=== PATIENT | male | born 1990 | race American Indian/Alaskan Native ===

== ENCOUNTER 2021-03-12 13:31 | Outpatient (REF) | payer OTHER, SELFPAY ==
[2021-03-12 16:30] LABS: Alanine Aminotransferase 38 U/L (0-40); Albumin Level 4.9 g/dL (3.5-5.0); Alkaline Phosphatase 61 U/L (39-117); Anion Gap 15 (12-20); Aspartate Amino Transferase 33 U/L (5-37); Bilirubin Total 0.9 mg/dL (0.0-1.0); Blood Urea Nitrogen 15 mg/dL (9-16); Calcium 9.7 mg/dL (8.4-10.2); Carbon Dioxide 26 mmol/L (22-29); Chloride 100 mmol/L (96-108); Cholesterol 224 mg/dL; Estimated Glomerular Filt Rate > 60; Glucose Fasting 93 mg/dL (60-99); HDL Cholesterol 59 mg/dL; Potassium 4.2 mmol/L (3.3-5.1); Sodium 137 mmol/L (135-145); Total Protein 8.6 g/dL (6.5-8.0); Triglycerides 765 mg/dL
[2021-03-12 16:51] LABS: TSH reflex Free T4 2.76 uIU/mL (0.32-4.0)
== END 2021-03-12 13:32 | disposition home or self-care (01) ==
LOC: HO.HMGCLDS 13:31
PROVIDERS: PCP Nurse Practitioner Family; Visit Provider Nurse Practitioner Family
DX: Z00.00 Encounter for general adult medical examination without abnormal findings (principal)
CPT/HCPCS: 36415; 80053; 80061; 84443

== ENCOUNTER → 2021-06-27 12:45 | Outpatient (BNVA) | payer OTHER, SELFPAY | PROVIDERS: Visit Provider Urology ==

== ENCOUNTER 2021-08-11 11:07 | Day surgery (SDC) | payer OTHER, SELFPAY ==
[2021-08-05 11:19] VITALS: BMI 28.4
--- NOTE | 2021-08-08 15:36 | P.CONAN_ITS ---
Documented by User: Bella Mittal NP 08/08/21 15:36 HPI - Anesthesia Eval Consult details Narrative: 30yo M for Circumcision PMFSH Active Problems Active Problems: All Active Problems (Updated 08/05/21 @ 11:21 by Delores Sainz RN) Uncircumcised male (Acute) Physical exam (Acute) High triglycerides (Acute) Phimosis (Acute) Past Medical History Medical History COVID-19 vaccine series completed No pertinent past medical history Family History Family History Father No problems noted. Mother Cancer Surgical History Surgical History H/O left knee surgery History of appendectomy Social History Social History Are you a primary palliative care physician to a significant other at home: No Do you presently have visiting nurse or other home services: No Alcohol intake: current Alcohol intake frequency: a few times a month Patient Tobacco Use Status: Never used Tobacco Use of substances other than those prescribed or required for medical reasons: No Have you been hit, kicked, punched, or otherwise hurt by someone within the past year? If so, by whom?: No Are you DNR?: No Advance Directives: No Advance Directives Information Provided: Yes (informational brochure mailed) Advance Directives on File: No Recently lost weight without trying: No Eating poorly because of decreased appetite: No Nutrition Risks: No Nutritional Risk Poor oral hygiene: No Meds Allergies Allergy/AdvReac Type Severity Reaction Status Date / Time No Known Allergies Allergy Verified 08/11/21 11:49 Exam Exam Date and Time: August 08, 2021 1536 Height,Weight and Vital Signs: Height 5 ft 11 in Weight 92.533 kg Assessment and Plan Assessment Anesthesia Assessment: Chart Reviewed Documented by User: Ria Reyes MD 08/11/21 12:30 PMFSH Past Medical History Medical History COVID-19 vaccine series completed No pertinent past medical history Family History Family History Father No problems noted. Mother Cancer Surgical History Surgical History H/O left knee surgery History of appendectomy History of Problems with Anesthesia: No Social History Social History Are you a primary palliative care physician to a significant other at home: No Do you presently have visiting nurse or other home services: No Alcohol intake: current Alcohol intake frequency: a few times a month Patient Tobacco Use Status: Never used Tobacco Use of substances other than those prescribed or required for medical reasons: No Have you been hit, kicked, punched, or otherwise hurt by someone within the past year? If so, by whom?: No Are you DNR?: No Advance Directives: No Advance Directives Information Provided: Yes (informational brochure mailed) Advance Directives on File: No Recently lost weight without trying: No Eating poorly because of decreased appetite: No Nutrition Risks: No Nutritional Risk Poor oral hygiene: No Meds Allergies Allergy/AdvReac Type Severity Reaction Status Date / Time No Known Allergies Allergy Verified 08/11/21 11:49 Exam Airway Mallampati Class: II TM Dist: >3cm Neck ROM: Full Loose/Missing/Broken Teeth: No Heart: RRR Lungs: CTA Assessment and Plan Assessment Anesthesia Assessment: Anesthesia Plan Discussed Final Anesthetic Review History of Problems with Anesthesia: No NPO: Yes ASA Class: II Final Preanesthetic Review: Meds/Allgs Chart Reviewed, Consent Obtained/Reviewed and Anes Risks/Benef Reviewed Patient Risk: Low Procedure Risk: Low Anesthetic Plan Anesthetic Plan: GA
[2021-08-11 11:35] VITALS: BP 140/99; PULSE 80; RESP 20; TEMP 36.9; O2SAT 97
[2021-08-11] MEDS: Lactated Ringers 1,000 ML 100 ML IVCONT (11:48)
--- NOTE | 2021-08-11 11:49 | MHC.SHP ---
Pre-Procedural Eval Section A Date of Service: 08/11/21 Section B Chief Complaint: phimosis Details of Present Illness: Phimosis Relevant Social History: None Present Medications: see Short Stay Collaborative assessment Medical History: Significant History History of Previous Operations: No relevant previous surgery Allergies: Allergies Allergy/AdvReac Type Severity Reaction Status Date / Time No Known Allergies Allergy Verified 08/11/21 11:49 Review of Systems Sugical H&P ROS: Negative: Constitution, Cardiovascular, Respiratory, Neurological, Psychiatric, Hem-Onc, Allergic/Immunologic, Gastrointestinal, Genitourinary, Musculoskeletal, Integumentary, Endocrine and Eyes/Ears/Nose/Throat Exam Surgical H&P Exam: Normal: HEENT, Normal: Heart, Normal: Lungs, Normal: Extremities, Normal: Abdomen, Normal: Skin and Normal: Neurological Plan Diagnosis/Plan: Unchanged (Circumcision) I have reviewed the history and physical and performed a pertinent physical examination on my patient. No changes have occurred unless specified.
--- NOTE | 2021-08-11 13:08 | W.PM.OPN ---
Operative Note Operative Note Date of Service: 08/11/21 Narrative: PreOperative Diagnosis: phimosis Post Operative Diagnosis: phimosis Procedure: Circumcision Surgeon: Dr Sam Gillis Anesthesia: General Indications for procedure: Phimosis with tearing of the skin during intercourse Risks and benefits including bleeding, scarring, need for revision surgery been discussed. Procedure: After informed consent was verified the patient was brought to the operating room and placed in a supine position. Anesthesia was administered per protocol. The patient was prepped and draped sterile fashion. Safety pause time-out was performed. Antibiotics have been given. The penis was examined and proximal incision marked that lay just proximal to the resting position of the penile sulcus. This was followed around the circumference of the penis. A penile ring block was performed using 1% lidocaine with no epinephrine. Approximately 8 cc. The proximal incision was developed with sharp blade running circumferentially around the penis. The skin was to give a 1 cm separation between the foreskin in the remaining penile shaft skin. The foreskin was withdrawn and the penile glans exposed. A a distal incision was made approximately 5 mm proximal to the penile sulcus. At the area of the frenulum care was taken to empty the penile frenulum intact. Using clamps the dorsal skin was elevated. Using Metzenbaum scissors the avascular plane was entered and proximal and distal incision were joined. The bridging skin was elevated and clamped. It was then divided using Bovie. The sleeve of tissue was then removed circumferentially around the penis using cautery in order to minimize bleeding. The shaft was then examined in any bleeding areas were controlled. More local anesthetic was injected into the plane beneath avascular plane to help with postprocedure pain management. The skin edges after they were appropriately examined low reapposed. A 3-0 chromic suture was placed at 12:00 o'clock and 06:00 o'clock positions. Interrupted 3-0 was then placed the 09:00 o'clock and 3 o'clock position. Each quadrant was then filled with 3 sutures using 4-0 chromic. At the completion of the procedure there was adequate hemostasis. The incision was washed and dried. Antibiotic cream was applied to the incision. A Rose wrap was applied followed by a Coban dressing. Xeroform gauze had been used to cover antibiotic ointment. He tolerated the procedure well and was extubated in the room and transferred in stable condition to the recovery area. Pathology: Foreskin Drains: none
[2021-08-11 13:10] VITALS: BP 115/69; PULSE 95; RESP 15; TEMP 37.2; O2SAT 99
[2021-08-11 13:15] VITALS: BP 131/77; PULSE 90; RESP 16; O2SAT 96
[2021-08-11 13:20] VITALS: BP 113/76; PULSE 93; RESP 16; O2SAT 95
[2021-08-11 13:25] VITALS: BP 116/73; PULSE 85; RESP 16; O2SAT 94
[2021-08-11 13:40] VITALS: BP 119/68; PULSE 90; RESP 16; TEMP 37.2; O2SAT 96
== END 2021-08-11 15:06 | disposition home or self-care (01) ==
PROVIDERS: PCP Nurse Practitioner Family; Visit Provider Urology
PROC: (CPT 54161; principal; 2021-08-11 12:40)
DX: N47.1 Phimosis (principal)
CPT/HCPCS: 54161; 88304; J0690; J1100; J1885; J2250; J2405; J3010

== ENCOUNTER → 2021-09-19 10:18 | Outpatient (BNVA) | payer OTHER, SELFPAY | PROVIDERS: PCP Nurse Practitioner Family; Visit Provider Urology ==

== ENCOUNTER 2023-11-05 11:06 | Outpatient (AMB) | payer OTHER, SELFPAY ==
--- NOTE | 2023-11-05 12:44 | AM.OFFWIN_ITS ---
Intake Vital Signs 11/05/23 12:51 Height 5 ft 11 in Weight 198 lb BMI 27.6 BP 140/90 H Blood Pressure Location Lt brachial Position Sitting Pulse 83 Pulse Source Pulse Oximeter Temp 97.6 F Temp Source Temporal Artery Scan Pulse Oximetry (%) 97 Oxygen Delivery Method Room Air Intake Visit Reasons: EP Cough, losing voice [phone] Intake Note: pt is here today for cough losing voice started 1 week ago Patient Tobacco Use Status: Never used Tobacco Allergies No Known Allergies Allergy (Verified 11/05/23 12:45) Medication List - Last Reconciled 11/05/23 by Renetta Card NP amoxicillin 500 mg PO BID 10 days benzonatate 200 mg (2 x 100 mg) PO TID hydrocortisone 2.5% 1 appl topical BID PRN 14 days Do you need a note to return to daycare/school/sports/work: Yes HPI HPI Comments History of Present Illness Details 32 y/o male patient who presents to the walk in clinic with c/o URI symptoms x 1 week. [facility] Medical History Bleeding hemorrhoids COVID-19 vaccine series completed No pertinent past medical history Surgical History H/O left knee surgery History of appendectomy Family History Father No problems noted. Mother Cancer Substance use disorder Mental health disorder Social History Housing: House Are you a primary geriatric care manager to a significant other at home: No Do you presently have visiting nurse or other home services: No Alcohol intake: current Alcohol intake frequency: a few times a month Patient Tobacco Use Status: Never used Tobacco e-Cigarette/Vaping Use: Never Used Second Hand Smoke Exposure: No service: No Current occupational status: employed Current occupation: A Current occupational exposures/hazards: Yes Cognitive needs: No Hearing needs: No Vision needs: No Review of Systems Const All systems reviewed & are unremarkable except as noted in HPI and below Physical Exam Vital Signs: Last Vital Signs Temp 97.6 F 11/05/23 12:51 Pulse 83 11/05/23 12:51 BP 140/90 H 11/05/23 12:51 Pulse Ox 97 11/05/23 12:51 Oxygen Delivery Method Room Air 11/05/23 12:51 BMI result Body Mass Index 27.6 Const General: comfortable and no acute distress HEENT Head: Yes normocephalic Ears: external ears normal and TM's normal bilaterally General nose exam: Normal nares present and Normal nasal mucous membranes and turbinates present Mouth: Normal oral and palatal mucosa present, oropharynx normal and moist mucous membranes Throat: Yes posterior oropharynx normal Resp Effort & Inspection: normal respiratory effort and able to speak in complete sentences Auscultation: clear to auscultation bilaterally Cardio Rate: regular rate Rhythm: regular rhythm Assessment & Plan Assessment & Plan (1) Cough in adult: Code(s): R05.9 - Cough, unspecified Plan: - WARM FLUIDS WITH HONEY - OTC SORE-THROAT REMEDIES. - REST (2) Upper respiratory infection: Code(s): J06.9 - Acute upper respiratory infection, unspecified Qualifiers: URI type: unspecified URI Qualified Code(s): J06.9 - Acute upper respiratory infection, unspecified Plan: - WARM FLUIDS WITH HONEY - OTC SORE-THROAT REMEDIES. - REST Medications: New amoxicillin 500 mg PO BID 10 days 20 caps 0RF J06.9 - Acute upper respiratory infection, unspecified, R05.9 - Cough, unspecified benzonatate 200 mg (2 x 100 mg) PO TID 90 caps 0RF COUGHING R05.9 - Cough, unspecified Coding Level of Care Code Est Pt Level 3 (18505) Diagnoses Cough in adult R05.9 Upper respiratory tract infection, unspecified type J06.9 URI type: unspecified URI Time Spent (min) 15
[2023-11-05 12:51] VITALS: BP 140/90; PULSE 83; TEMP 36.4; O2SAT 97; BMI 27.6
== END 2023-11-05 13:26 | disposition home or self-care (01) ==
PROVIDERS: PCP Nurse Practitioner Family; Visit Provider Nurse Practitioner Family
DX: R05.9 Cough, unspecified (principal); J06.9 Acute upper respiratory infection, unspecified
CPT/HCPCS: 99213

== ENCOUNTER 2023-11-17 08:02 | Outpatient (AMB) | payer OTHER, SELFPAY ==
[2023-11-17 08:08] VITALS: BP 132/80; PULSE 74; TEMP 36.7; O2SAT 98; BMI 28.0
--- NOTE | 2023-11-17 08:08 | MHC.OFFWIV ---
Intake Vital Signs 11/17/23 08:08 Height 5 ft 11 in Weight 201 lb BMI 28.0 BP 132/80 Blood Pressure Location Lt brachial Position Sitting Pulse 74 Pulse Source Pulse Oximeter Temp 98.0 F Temp Source Oral Pulse Oximetry (%) 98 Intake Visit Reasons: EP Cough, Raspy Voice Intake Note: pt is here for c.o cough for 3 weeks, raspy voice Patient Tobacco Use Status: Never used Tobacco Allergies No Known Allergies Allergy (Verified 11/17/23 08:10) Do you need a note to return to daycare/school/sports/work: Yes HPI HPI Comments History of Present Illness Details This is a 32-year-old male with no stated past medical history presenting for evaluation of cough that he has had for the past 3 weeks coupled with a ?raspy voice?. Patient was seen at urgent care on November 05, prescribed amoxicillin and Tessalon for she states did not improve his symptoms. Patient states that his cough is both day and night however he has not had any difficulty sleeping. Patient denies having any fevers, chills, sore throat, ear pain, shortness for breath or chest pain. Patient states that he tests himself daily for COVID-19 and his tests have been negative over the past 3 weeks. Patient reports his cough as dry in nature. [facility] Medical History Bleeding hemorrhoids COVID-19 vaccine series completed No pertinent past medical history Surgical History H/O left knee surgery History of appendectomy Family History Father No problems noted. Mother Cancer Substance use disorder Mental health disorder Social History Housing: House Are you a primary youth care specialist to a significant other at home: No Do you presently have visiting nurse or other home services: No Alcohol intake: current Alcohol intake frequency: a few times a month Patient Tobacco Use Status: Never used Tobacco e-Cigarette/Vaping Use: Never Used Second Hand Smoke Exposure: No service: No Current occupational status: employed Current occupation: [employer] Current occupational exposures/hazards: Yes Cognitive needs: No Hearing needs: No Vision needs: No Review of Systems Const All systems reviewed & are unremarkable except as noted in HPI and below Reports no additional complaints, Denies chills and Denies fever(s) Eyes Reports as per HPI ENT Reports no additional complaints, Denies otalgia and Denies sore throat Card Reports as per HPI and Denies dyspnea Resp Reports as per HPI, Reports cough and Denies dyspnea GI Reports no additional complaints Sonido/Lymph Reports no additional complaints Physical Exam Vital Signs: BMI result Body Mass Index 28.0 Afebrile, POX 98% on room air Const General: cooperative, healthy appearing, comfortable, no acute distress, well developed, alert, awake and Physically active; No ill appearing or lethargic Nutritional Appearance: average body habitus Orientation/consciousness: patient oriented x3 and No lethargic Limitations: no limitations HEENT Head: Yes normal to inspection Ears: hearing grossly normal bilaterally, external ears normal, TM's normal bilaterally and EAC's normal General nose exam: Normal external nose present Face and sinus: Yes normal facial exam and Yes sinuses nontender Mouth: Normal oral and palatal mucosa present and moist mucous membranes Teeth and gingiva: dentition normal Throat: Yes posterior oropharynx normal Eyes Eyelids: Yes eyelids normal Conjunctivae: conjunctivae normal Sclerae: sclerae normal Corneas: corneas normal Pupils: Equal, round and reactive pupils present EOM: EOMs intact bilaterally Direct Ophthalmoscopy: no photophobia Neck Lymphatic: no lymphadenopathy noted Resp Effort & Inspection: normal respiratory effort, able to speak in complete sentences, no audible wheezes, no cough and no respiratory distress Auscultation: clear to auscultation bilaterally Cardio Rate: regular rate Rhythm: regular rhythm Heart sounds: S1 normal heart sound present Skin General skin exam: no rashes or lesions noted Neuro General: patient oriented x3 Cranial nerves: Yes Equal, round and reactive pupils present Psych Appearance: grossly normal Mental Status: mental status grossly normal Insight: Good insight present (Psych) Judgement: Good judgement present (Psych) Assessment & Plan Assessment & Plan (1) Upper respiratory tract infection: Comment: Patient is afebrile and is not hypoxic. Patient is in no acute distress. Code(s): J06.9 - Acute upper respiratory infection, unspecified Qualifiers: URI type: unspecified viral URI Qualified Code(s): J06.9 - Acute upper respiratory infection, unspecified Plan: Mucinex OTC as prescribed daily times 10 days, increase clear fluids daily and follow-up with primary care within 10 days. Patient is clear to return to work with a mask. Coding Level of Care Code Est Pt Level 3 (32646) Diagnoses Viral upper respiratory tract infection J06.9 URI type: unspecified viral URI Time Spent (min) 20
== END 2023-11-17 09:17 | disposition home or self-care (01) ==
PROVIDERS: PCP Nurse Practitioner Family; Visit Provider Physician Assistant
DX: J06.9 Acute upper respiratory infection, unspecified (principal)
CPT/HCPCS: 99213

== ENCOUNTER 2024-03-30 10:58 | Outpatient (AMB) | payer OTHER, SELFPAY ==
--- NOTE | 2024-03-30 11:01 | MHC.PC.OV ---
Vital Signs 03/30/24 11:04 03/30/24 11:14 Height 5 ft 11 in Weight 204 lb BMI 28.4 BP 126/90 H 126/90 H Blood Pressure Location Rt brachial Rt brachial Position Sitting Sitting Pulse 82 Pulse Source Pulse Oximeter Pulse Oximetry (%) 98 Oxygen Delivery Method Room Air Intake Visit Reasons: PE Intake Note: Patient here for physical exam. Allergies No Known Allergies Allergy (Verified 03/30/24 12:13) Medication List - Last Reconciled 03/30/24 by JAMIL Moore hydrocortisone 2.5% 1 appl topical BID PRN 14 days Tobacco use date assessed: 03/30/24 Dental Screening Dental Screen Date: 03/30/24 Did you have a dental visit in the last 12 months?: Yes Did you have a dental problem in the last 6 months where you did not have access to dental care?: No Was dental information given to patient?: Patient has dentist HPI PE HPI Details Pt is here for a PE. Will order labs. HTN: Blood pressure is elevated today. Pt reports that he drinks a Red Bull every morning. He also has a new baby at home. Will have pt monitor his blood pressure at home and record readings. Denies chest pain, shortness of breath, headache, dizziness, and blurred vision. Pt would like ADHD testing. He reports poor concentration. Will have team speak with pt regarding this. Pt is interested in a vasectomy, will refer to urology. [facility] Medical History Bleeding hemorrhoids COVID-19 vaccine series completed No pertinent past medical history Surgical History H/O left knee surgery History of appendectomy Family History Father No problems noted. Mother Cancer Substance use disorder Mental health disorder Social History Housing: House Are you a primary lawn care technician to a significant other at home: No Do you presently have visiting nurse or other home services: No Alcohol intake: current Alcohol intake frequency: a few times a month Patient Tobacco Use Status: Never used Tobacco e-Cigarette/Vaping Use: Never Used Second Hand Smoke Exposure: No service: No Current occupational status: employed Current occupation: A Current occupational exposures/hazards: Yes Cognitive needs: No Hearing needs: No Vision needs: No Questionnaire PHQ-9 Over the last 2 weeks, how often have you been bothered by any of the following problems? 1. Little interest or pleasure in doing things: not at all 2. Feeling down, depressed, or hopeless: not at all 3. Trouble falling or staying asleep, or sleeping too much: several days 4. Feeling tired or having little energy: more than half the days 5. Poor appetite or overeating: not at all 6. Feeling bad about yourself - or that you are a failure or have let yourself or your family down: not at all 7. Trouble concentrating on things, such as reading the newspaper or watching television: not at all 8. Moving or speaking so slowly that other people could have noticed. Or the opposite - being so fidgety or restless that you have been moving around a lot more than usual: not at all 9. Thoughts that you would be better off or of hurting yourself in some way: not at all Total score: 3 Depression Screening Interpretation: Negative Depression Screening Done: Yes 00622 - PHQ-9 Billing: Yes Source: Developed by Drs. Richard Mcdonald, Radha Barnett, Roberto Aparicio and colleagues, with an educational ryan from [employer]. Thrive Questionnaire Date Thrive assessed: 03/30/24 I am a: Patient What is your living situation today?: I have a steady place to live Within the past 12 months, did the food you bought not last and you didn't have the money to get more?: Never true Within the past 12 months, did you worry whether your food would run out before you got money to buy more?: Never true Do you have trouble paying for medicines?: No Do you have trouble getting transportation to medical appointments?: No Do you have trouble paying your heating and electricity bill?: No Do you have trouble taking care of your child, family member or friend?: No Do you have trouble with day-to-day activities such as bathing, preparing meals, shopping, managing finances, etc.?: No Are you currently unemployed and looking for a job?: No Are you interested in more education?: No Currently or been in a relationship where the following occur: I choose not to answer this question THRIVE Score: 0 AUDIT C Alcohol Use Questionnaire (AUDIT-C) 1. How often do you have a drink containing alcohol?: 2-4 times a month 2. How many drinks containing alcohol do you have on a typical day when you are drinking?: 1 or 2 3. How often do you have six or more drinks on one occasion?: Never Total Score: 2 Score Reviewed/Action Taken: No KHADRA-7 AMB Questionnaire KHADRA-7 Date KHADRA - 7 assessed: 03/30/24 Feeling nervous, anxious, or on edge: 1 = Several days Not being able to stop or control worryin = Several days Worrying too much about different things: 1 = Several days Trouble relaxin = Not at all Being so restless that it is hard to sit still: 0 = Not at all Becoming easily annoyed or irritable: 0 = Not at all Feeling afraid as if something awful might happen: 0 = Not at all Total KHADRA-7 score (0-4 normal; 5-9 mild; 10-14 moderate; 15-21 severe): 3 Source: Developed by Drs. Richard Mcdonald, Radha Barnett, Roberto Aparicio and colleagues, with an educational ryan from [employer]. KHADRA-7 Assessment Billing KHADRA-7 Assessment Tool: KHADRA-7 Assessment 33845 Review of Systems Const Denies chills and Denies fever(s) Eyes Denies blurry vision ENT Denies vertigo, Denies dizziness and Denies sore throat Card Denies chest pain at rest, Denies chest pain with activity, Denies diaphoresis, Denies dyspnea and Denies dyspnea on exertion Resp Denies cough, Denies dyspnea, Denies dyspnea on exertion and Denies wheezing GI Denies abdominal pain, Denies melena, Denies hematochezia, Denies constipation, Denies diarrhea and Denies loose stools Denies hematuria Musc Denies numbness and Denies tingling Skin/Breast Denies lesions Neuro Denies vertigo, Denies dizziness, Denies numbness and Denies tingling Psych Denies anxiety, Denies depression, Denies homicidal ideation, Denies suicidal ideation and Denies other (substance abuse) Aller/Immun Denies wheezing Physical exam (Primary Care) Vital Signs: Last Vital Signs Pulse 82 03/30/24 11:04 BP 126/90 H 03/30/24 11:04 Pulse Ox 98 03/30/24 11:04 Oxygen Delivery Method Room Air 03/30/24 11:04 BMI result Body Mass Index 28.4 Tobacco/Smoking Status: Tobacco use Status Tobacco use date assessed 03/30/24 03/30/24 11:06 Patient Tobacco Use Status Never used Tobacco 03/30/24 11:02 e-Cigarette/Vaping Use Never Used 03/30/24 11:02 Depression Screening Interpretation: Negative Thrive Assessment: Date of Thrive Assessment Date Thrive assessed 03/18/23 03/30/24 11:02 Currently or been in a relationship where the following occur: I choose not to answer this question Const General: cooperative Nutritional Appearance: well nourished Orientation/consciousness: patient oriented x3 HENMT Head: Yes normal to inspection, Yes normocephalic and Yes atraumatic Ears: TM's normal bilaterally Eyes General: appearance normal, both eyes and all related structures Alignment and Position: alignment normal and position normal Neck Neck: Yes normal visual inspection and Yes no lymphadenopathy Thyroid: Thyroid normal Resp Effort & Inspection: normal respiratory effort Auscultation: clear to auscultation bilaterally Cardio Rate: regular rate Rhythm: regular rhythm Heart sounds: S1 normal heart sound present, S2 normal heart sound present and no murmurs GI Palpation (GI): Soft to palpation and nontender Auscultation: normal bowel sounds Male General Exam: Yes normal external exam Penis: normal penis Scrotum: scrotum normal, testes descended bilaterally and no inguinal hernias Testes: no testicular mass Skin Rashes: no rashes Neuro General: patient oriented x3, moves all extremities, no focal motor deficits and deep tendon reflexes 2+ bilaterally Romberg Test: Negative Psych Appearance: grossly normal Mental Status: mental status grossly normal Speech and movement: Normal speech and movement present Affect: normal affect Attitude: cooperative Thought process: Normal thought process present Thought content: Normal thought content present Insight: Good insight present (Psych) Judgement: Good judgement present (Psych) Assessment and Plan Assessment & Plan (1) HTN (hypertension): Code(s): I10 - Essential (primary) hypertension Plan: pt will take his BP at home, will send me values via the portal (2) Encounter for routine adult physical exam with abnormal findings: Code(s): Z00.01 - Encounter for general adult medical examination with abnormal findings Plan: Labs ordered (3) Admission for vasectomy: Code(s): Z30.2 - Encounter for sterilization Plan: Referred to urology (4) Poor concentration: Code(s): R41.840 - Attention and concentration deficit Plan: (mala) to speak with pt Plan The patient agreed to the use of a emergency medical technician/driver for this encounter. Scribed for MARIAM Huitron-BC by jitendra Bhatti scribe, on 03/30/2024 at 11:15 EST. Orders: Referrals Urology Referral Z30.2 - Encounter for sterilization Coding Level of Care Code Est Pt Level 3 (36198) Est Pt Prev Care 18-39y(34047) Diagnoses HTN (hypertension) I10 Encounter for routine adult physical exam with abnormal findings Z00.01 Admission for vasectomy Z30.2 Poor concentration R41.840 Additional Codes KHADRA-7 Assessment Billing - KHADRA-7 Assessment Tool: KHADRA-7 Assessment 57947 ([id number])
[2024-03-30 11:04] VITALS: BP 126/90; PULSE 82; O2SAT 98; BMI 28.4
[2024-03-30 11:14] VITALS: BP 126/90
== END 2024-03-30 11:35 | disposition home or self-care (01) ==
PROVIDERS: PCP Nurse Practitioner Family; Visit Provider Nurse Practitioner Family
DX: Z00.01 Encounter for general adult medical examination with abnormal findings (principal); I10 Essential (primary) hypertension; R41.840 Attention and concentration deficit
CPT/HCPCS: 99213; 99395

== ENCOUNTER 2024-05-22 08:14 | Outpatient (REF) | payer OTHER, SELFPAY ==
[2024-05-22 10:09] LABS: MANUAL DIFF FLAG NO
[2024-05-22 10:18] LABS: Basophils Percent Auto 0.5 % (0-2); Eosinophils Percent Auto 0.6 % (0-4); Hematocrit 37.8 % (42.0-52.0); Hemoglobin 13.3 g/dl (14.0-18.0); Imm Gran Abs Auto 0.04 X10*3/uL (0.00-0.03); Imm Gran Pct Auto 0.6 % (0.0-0.4); Lymphocytes Absolute Auto 1.3 X10*3/uL (1.2-4.9); Lymphocytes Percent Auto 20.4 % (20-40); Mean Corpuscular HGB Conc 35.2 g/dl (31.0-36.0); Mean Corpuscular Hemoglobin 32.1 pg (27.0-33.0); Mean Corpuscular Volume 91.3 fL (80.0-98.0); Mean Platelet Volume 9.3 fL (9.4-12.4); Monocytes Absolute Auto 0.6 X10*3/uL (0.1-1.2); Monocytes Percent Auto 9.9 % (2-11); Neutrophils Absolute Auto 4.2 x10*3/uL (2.0-8.3); Platelet Count 363 X10*3/uL (160-400); Red Blood Count 4.14 X10*6/uL (4.60-5.80); Red Cell Distribution Width 10.9 % (11.0-16.0); White Blood Count 6.2 X10*3/uL (4.8-10.8)
[2024-05-22 10:53] LABS: Appearance Urine Turbid; Color Urine Dark Yellow; Glucose Urine UA Negative (Negative); Leukocyte Esterase Urine Negative (Negative); Nitrite Urine Negative (Negative); PH 5.5 (5.0-9.0); Specific Gravity - Urine 1.025 (1.005-1.025); UMIC TRIGGER UACC YES; Urine Blood Negative (Negative); Urine Ketones Trace mg/dL (Negative); Urine Protein 30 (1+) mg/dL (Neg-Trace)
[2024-05-22 10:55] LABS: Alanine Aminotransferase 37 U/L (0-40); Albumin Level 4.8 g/dL (3.5-5.0); Alkaline Phosphatase 77 U/L (39-117); Anion Gap 11 (12-20); Aspartate Amino Transferase 37 U/L (5-37); Bilirubin Total 0.9 mg/dL (0.0-1.0); Blood Urea Nitrogen 10 mg/dL (9-16); Calcium 9.3 mg/dL (8.4-10.2); Carbon Dioxide 28 mmol/L (22-29); Chloride 100 mmol/L (96-108); Cholesterol 250 mg/dL (<200); Estimated Glomerular Filt Rate > 60; Glucose Fasting 105 mg/dL (60-99); Glucose Random 105 mg/dL (60-115); HDL Cholesterol 52 mg/dL (>40); Potassium 3.3 mmol/L (3.3-5.1); Sodium 136 mmol/L (135-145); TSH reflex Free T4 1.39 uIU/mL (0.32-4.0); Total Protein 8.8 g/dL (6.5-8.0); Triglycerides 846 mg/dL (<150)
[2024-05-22 11:02] LABS: Bacteria Urine None Seen (None Seen); Hyaline Casts Urine 0-2 /LPF (0-2); RBC Urine 0-2 /HPF (0-2); Squamous Epithelial Cell Urine 0-2 /HPF (0-2); WBC Urine 0-5 /HPF (0-5)
[2024-05-22 11:21] LABS: Influenza A PCR NEGATIVE (Negative); Influenza B PCR NEGATIVE (Negative); Resp Syncy Virus RNA Qual PCR NEGATIVE (Negative); SARS COV2 PCR INHOUSE NEGATIVE (Negative)
== END 2024-05-22 08:15 | disposition home or self-care (01) ==
LOC: HO.HMGCLDS 08:14
PROVIDERS: Registered Nurse; PCP Nurse Practitioner Family; Visit Provider Nurse Practitioner Family
DX: Z00.00 Encounter for general adult medical examination without abnormal findings (principal); I10 Essential (primary) hypertension; J06.9 Acute upper respiratory infection, unspecified
CPT/HCPCS: 0241U; 36415; 80053; 80061; 81001; 84443; 85025

== ENCOUNTER 2024-05-22 08:32 | Outpatient (AMB) | payer OTHER, SELFPAY ==
[2024-05-22 09:08] VITALS: BP 114/80; PULSE 113; TEMP 37.9; O2SAT 98; BMI 28.2
--- NOTE | 2024-05-22 09:08 | MHC.OFFWIV ---
Intake Vital Signs 05/22/24 09:08 Height 5 ft 11 in Weight 202 lb BMI 28.2 BP 114/80 Blood Pressure Location Lt brachial Position Sitting Pulse 113 H Pulse Source Pulse Oximeter Temp 100.3 F Temp Source Oral Pulse Oximetry (%) 98 Oxygen Delivery Method Room Air Intake Visit Reasons: EP Cough, Neck Pain Intake Note: pt c/o cough, sore throat, nausea and neck pain. Started 2 days ago. Patient Tobacco Use Status: Never used Tobacco Allergies No Known Allergies Allergy (Verified 05/22/24 09:08) Do you need a note to return to daycare/school/sports/work: No HPI EP Cough, Neck Pain HPI Details This note is constructed using voice recognition software. While every effort has been made to ensure accuracy, gate agent errors may have been included. The patient is a 33 year old male who presents to the clinic today with URI symptoms starting on Wednesday. He notes that he is having a low-grade fever, mild cough, sore throat, and body aches. He has not been around anybody who was sick. He denies dyspnea. He has not tried anything to make himself better. [facility] Medical History Bleeding hemorrhoids COVID-19 vaccine series completed No pertinent past medical history Surgical History H/O left knee surgery History of appendectomy Family History Father No problems noted. Mother Cancer Substance use disorder Mental health disorder Social History Housing: House Are you a primary human services care specialist to a significant other at home: No Do you presently have visiting nurse or other home services: No Alcohol intake: current Alcohol intake frequency: a few times a month Patient Tobacco Use Status: Never used Tobacco e-Cigarette/Vaping Use: Never Used Second Hand Smoke Exposure: No service: No Current occupational status: employed Current occupation: [employer] Current occupational exposures/hazards: Yes Cognitive needs: No Hearing needs: No Vision needs: No Review of Systems Const All systems reviewed & are unremarkable except as noted in HPI and below Physical Exam Vital Signs: Last Vital Signs Temp 100.3 F 05/22/24 09:08 Pulse 113 H 05/22/24 09:08 BP 114/80 05/22/24 09:08 Pulse Ox 98 05/22/24 09:08 Oxygen Delivery Method Room Air 05/22/24 09:08 BMI result Body Mass Index 28.2 Const General: cooperative, healthy appearing, comfortable and no acute distress Orientation/consciousness: patient oriented x3 Limitations: no limitations HEENT Head: Yes normal to inspection Ears: hearing grossly normal bilaterally, external ears normal and TM's normal bilaterally General nose exam: Normal external nose present, Normal nares present and No nasal discharge present Face and sinus: Yes normal facial exam and Yes sinuses nontender Mouth: Normal oral and palatal mucosa present and moist mucous membranes Throat: Yes tonsils normal, Yes uvula midline and Yes posterior oropharynx abnormal (Erythema) Eyes General: appearance normal, both eyes and all related structures Neck Neck: Yes normal visual inspection Resp Effort & Inspection: normal respiratory effort, able to speak in complete sentences, Actively coughing, no respiratory distress, not tachypneic, no tripod positioning and no use of accessory muscles Auscultation: clear to auscultation bilaterally Cardio Jugular venous distension: no JVD Rate: regular rate Rhythm: regular rhythm Heart sounds: S1 normal heart sound present, S2 normal heart sound present, no click, no gallops, no murmurs and no rubs Skin General skin exam: no rashes or lesions noted, elasticity normal and turgor normal Neuro General: patient oriented x3 Extrem General: Yes normal to inspection and Yes no clubbing, cyanosis or edema Results AMB Rapid Strep AMB Rapid Strep Negative Last Edit by Charles Fernandez CMA on 05/22/24 09:24 Assessment & Plan Assessment & Plan (1) Upper respiratory tract infection: Comment: Patient is afebrile and is not hypoxic. Patient is in no acute distress. Code(s): J06.9 - Acute upper respiratory infection, unspecified Qualifiers: URI type: unspecified viral URI Qualified Code(s): J06.9 - Acute upper respiratory infection, unspecified Plan: Supportive measures encouraged and reviewed including hydration, humidification. In office rapid strep negative. Swab obtained for viral URI panel. Plan See above for full details and plan. Orders: Orders SARS-CoV2/FLU/RSV Today J06.9 - Acute upper respiratory infection, unspecified AMB Rapid Strep Screen Today Z13.9 - Encounter for screening, unspecified Coding Level of Care Code Est Pt Level 3 (89790) Diagnoses Viral upper respiratory tract infection J06.9 URI type: unspecified viral URI
== END 2024-05-22 10:01 | disposition home or self-care (01) ==
PROVIDERS: PCP Nurse Practitioner Family; Visit Provider Registered Nurse
DX: J06.9 Acute upper respiratory infection, unspecified (principal)
CPT/HCPCS: 87880; 99213

== ENCOUNTER 2024-07-13 13:18 | Outpatient (AMB) | payer OTHER, SELFPAY ==
--- NOTE | 2024-07-13 13:52 | MHC.OFFVIS ---
Intake Visit Reasons: vasectomy consult Intake Note: New Patient is present for Vasectomy Consultation Patient has 4 children Not currently Expecting any children Data Analytics Developer Required: No Accompanied by: Self / Same As Patient Allergies No Known Allergies Allergy (Verified 07/13/24 13:55) HPI Comments Details: Darrell is a 33-year-old male. New Patient is present for Vasectomy Consultation. He has 4 children. Vasectomy procedure was discussed at length with the patient. He was informed that vasectomy is a safe, permanent, and effective form of control but there are risks involved. It may involve risk of hematoma, procedure failure which is rare, sperm granuloma which may cause mild pain, and congestion which may cause sense of pressure and generally resolves after several weeks. Also discussed is the reported post vasectomy pain syndrome with chronic testicular pain which is uncommon <5% The patient was advised that it is necessary to use other types of control methods for > 12 weeks and until we send semen for analysis to make sure there is no more sperm in the semen. [facility] Medical History Bleeding hemorrhoids COVID-19 vaccine series completed No pertinent past medical history Surgical History H/O left knee surgery History of appendectomy Family History Father No problems noted. Mother Cancer Substance use disorder Mental health disorder Social History Housing: House Are you a primary child care giver to a significant other at home: No Do you presently have visiting nurse or other home services: No Alcohol intake: current Alcohol intake frequency: a few times a month Patient Tobacco Use Status: Never used Tobacco e-Cigarette/Vaping Use: Never Used Second Hand Smoke Exposure: No service: No Current occupational status: employed Current occupation: [employer] Current occupational exposures/hazards: Yes Cognitive needs: No Hearing needs: No Vision needs: No Review of Systems Const All systems reviewed & are unremarkable except as noted in HPI and below Reports no additional complaints Eyes Reports no additional complaints ENT Reports no additional complaints Card Reports no additional complaints Resp Reports no additional complaints GI Reports no additional complaints Reports as per HPI Musc Reports no additional complaints Skin/Breast Reports system reviewed and no additional complaints, except as documented Neuro Reports no additional complaints Psych Reports no additional complaints Endo Reports no additional complaints Sonido/Lymph Reports no additional complaints Aller/Immun Reports no additional complaints Physical Exam Const General: healthy appearing, no acute distress and well developed Orientation/consciousness: patient oriented x3 HEENT Head: Yes normocephalic and Yes atraumatic Eyes Conjunctivae: conjunctivae normal Neck Neck: Yes normal visual inspection Chest Chest palpation & inspection: normal inspection of the chest Resp Effort & Inspection: normal respiratory effort Cardio Rate: regular rate GI Inspection: Yes normal to inspection Neuro General: patient oriented x3 Extrem General: No pedal edema Psych Appearance: grossly normal Affect: normal affect Assessment & Plan Assessment & Plan (1) Encounter for vasectomy counseling: Code(s): Z30.09 - Encounter for other general counseling and advice on contraception Category: Medical (2) Anxiety about health: Code(s): R45.89 - Other symptoms and signs involving emotional state Category: Medical Plan Schedule vasectomy in the operating room Patient Instructions: The patient had an opportunity to ask questions regarding treatment plan. The patient expressed understanding and agreement with the above treatment plan. The patient is aware they should contact our office by phone for worsening of their current condition or the appearance of new symptoms. Compliance is encouraged with any medications and followup testing that is ordered. It is a privilege to be allowed the opportunity to participate in the urologic care of your patient. If you have any questions or concerns regarding treatment for the above conditions please do not hesitate to contact me. The office telephone contact is [phone]. This note is constructed in part using voice recognition software. While every effort has been made to ensure accuracy control electrician errors may have been included. Yours sincerely, Amando Jimenez MD Coding Level of Care Code New Pt Level 4 (75111) Diagnoses Encounter for vasectomy counseling Z30.09 Anxiety about health R45.89
== END 2024-07-13 14:57 | disposition home or self-care (01) ==
PROVIDERS: PCP Nurse Practitioner Family; Visit Provider Urology
DX: Z30.09 Encounter for other general counseling and advice on contraception (principal); R45.89 Other symptoms and signs involving emotional state
CPT/HCPCS: 99204

== ENCOUNTER → 2024-07-13 13:18 | Outpatient (BNVA) | payer OTHER, SELFPAY | PROVIDERS: PCP Nurse Practitioner Family; Visit Provider Urology ==

== ENCOUNTER 2024-08-22 08:37 | Day surgery (SDC) | payer OTHER, SELFPAY ==
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
[2024-08-22 09:20] VITALS: BMI 28.4
[2024-08-22 09:44] VITALS: BP 128/89; PULSE 92; RESP 16; TEMP 37.1; O2SAT 98
[2024-08-22] MEDS: Lactated Ringers 1,000 ML 100 ML IVCONT (09:46)
--- NOTE | 2024-08-22 10:50 | MHC.SHP ---
Pre-Procedural Eval Section A - 24 Hr Update-Section A only Date of Service: 08/22/24 The patient is an INPATIENT: No The patient has been examined within 24 hours of the surgical procedure. The History & Physical has been completed within 30 days and I have reviewed it.: Yes Section B - Complete if H&P > 30 days Chief Complaint: Encounter for sterilization Allergies: Allergies Allergy/AdvReac Type Severity Reaction Status Date / Time No Known Allergies Allergy Verified 07/13/24 13:55 Plan Diagnosis/Plan: Unchanged I have reviewed the history and physical and performed a pertinent physical examination on my patient. No changes have occurred unless specified. Bilateral Vasectomy procedure risks discussed but not limited tohematoma, procedure failure which is rare, sperm granuloma which may cause mild pain, and congestion which may cause sense of pressure and generally resolves after several weeks. Also discussed is the reported post vasectomy pain syndrome with chronic testicular pain which is uncommon <5% The patient was advised that it is necessary to use other types of control methods for > 12 weeks and until we send semen for analysis to make sure there is no more sperm in the semen. Time Spent With Patient Time: Total time managing care of this patient today ____ minutes.
[2024-08-22 12:05] VITALS: BP 99/61; PULSE 88; RESP 16; TEMP 36.2; O2SAT 95
--- NOTE | 2024-08-22 12:09 | W.PM.OPN ---
Operative Note Operative Note Date of Service: 08/22/24 Narrative: Preoperative diagnosis: Anxiety regarding Postoperative diagnosis: Anxiety regarding unplanned Procedure: Bilateral vasectomy Surgeon: Dr. Amando Jimenez Anesthesia: General Details of procedure:? The patient was brought into the operating room placed on the OR table in supine position.? 2 g of Ancef IV.? General anesthesia was administered.? The patient was prepped and draped in the usual sterile fashion. ? Time-out was done per protocol.? Both vasa were palpated through the skin using a 3 finger technique and at the penoscrotal junction. Starting on the right, the vas was elevated using a 3 finger grasping technique. Using the 15 blade knife an incision was made over the vas followed by a sharp spreading instrument the fascia was spread longitudinally in line with the vasa. The vasa was elevated from the scrotum using a ring clamp. Sharp and blunt dissection was used divide the vasal sheath and to strip the vasal sheath from the vasa. The vasal sheath was dissected from the vas in a proximal and distal fashion. This allowed the blood vessels of the vasa to retract from the vasa. The vasa was grasped with a forcep clamp on both sides and elevated from the incision. The vas was clamped on either side and a segment sent for path. 3.0 vicryl was used to apply a suture tie to the vasa and the needle tip cautery was used to cauterize the proximal and caudal end of the vas. Using 4 -0 chromic, the fascia was used to over lay and bury each end of the vas. The similar procedure was repeated on the left side. Both skin incisions were closed with 4-0 chromic. Bacitracin ointment and gauze was applied. The patient tolerated the procedure well. He was brought out of anesthesia. He understands the need to continue to use control methods. A semen sample should be brought for inspection under the microscope in 12 weeks. Drains: none Complications: none
[2024-08-22 12:10] VITALS: BP 104/65; PULSE 75; RESP 16; O2SAT 96
[2024-08-22 12:15] VITALS: BP 105/67; PULSE 71; RESP 20; O2SAT 96
[2024-08-22 12:20] VITALS: BP 103/65; PULSE 69; RESP 20; O2SAT 97
[2024-08-22] MEDS: Acetaminophen 325 MG TABLET 975 MG PO (12:25)
[2024-08-22] MEDS: oxyCODONE HCl Immed Release 5 MG TABLET PO (12:27)
[2024-08-22 12:35] VITALS: BP 106/73; PULSE 73; RESP 20; TEMP 36.9; O2SAT 99
== END 2024-08-22 12:59 | disposition home or self-care (01) ==
PROVIDERS: PCP Nurse Practitioner Family; Visit Provider Urology
PROC: (CPT 55250; principal; 2024-08-22 10:40)
DX: Z30.2 Encounter for sterilization (principal); R45.89 Other symptoms and signs involving emotional state; F41.8 Other specified anxiety disorders; Z98.890 Other specified postprocedural states
CPT/HCPCS: 55250; 88302; J0690; J2003; J2704; J2795; J3010

== ENCOUNTER → 2024-08-22 08:37 | Outpatient (BNV) | payer OTHER, SELFPAY | PROVIDERS: PCP Nurse Practitioner Family; Visit Provider Urology | DX: Z30.2 Encounter for sterilization (principal) | CPT/HCPCS: 55250 ==

== ENCOUNTER 2024-11-30 14:04 | Outpatient (AMB) | payer OTHER, SELFPAY ==
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
--- OUTSIDE RECORDS SUMMARY | 2024-11-30 14:09 | XMS_ITS | Encounter Summary ---
Author Organization [facility] Address [address] [place] [id number] Care Team Providers Care Electrician'S Assistant Name Role Phone Pcp, No Primary Care Provider Unavailabl e Encounter Details Date Type Department Care Team (Late st Contact Info) Description 10/24/2024 Scanned Document [address] [facility] [place] [address] Provider, Generic Social History Tobacco Use Types Packs/Day Years Used Date Smoking Tobacco: Never Smokeless Tobacco: Never Sex and Gender Information Value Date Recorded Sex Assigned at Not on file Gender Identity Not on file Sexual Orientation Not on file documented as of this encounter Plan of Treatment Not on file documented as of this encounter Visit Diagnoses Not on filedocumented in this encounter Care Teams Electrician'S Assistant Relationship Specialty Start Date End Date Pcp, No PCP - General General Medicine 10/15/24 documented as of this encounter
--- OUTSIDE RECORDS SUMMARY | 2024-11-30 14:09 | XMS_ITS | Clinical Summary ---
Author Organization [facility] Address [address] [place] [address] Care Team Providers Care Bomb Squad Officer Name Role Phone Pcp, No Primary Care Provider Unavailabl e Allergies No known active allergies Medications Medication Sig Dispensed Refills Start Date End Date Status atorvastatin (LIPITOR) 10 MG tablet 10 MG ORALLY BEDTIME 08/28/2024 Active losartan-hydroCHLORO thiazide (HYZAAR) 50-12.5 MG per tablet Take 1 tablet by mouth. 10/18/2024 Active benzonatate (TESSALON) 200 MG capsuleIndications:W alking pneumonia Take 1 capsule (200 mg total) by mouth 3 (three) times a day as needed for cough. 30 capsule 10/24/2024 Active Encounters Date Type Department Care Team Description 10/24/2024 3:50 PM EST Office Visit [facility] [address] [place] [address] Guerrero Paz MD Anderson, Afua Tolbert, PANiya Walking pneumonia (Primary Dx) 10/24/2024 Travel 10/24/2024 Scanned Document [address] [facility] [address] [place] [phone] Provider, Generic from Last 3 Months Social History Tobacco Use Types Packs/Day Years Used Date Smoking Tobacco: Never Smokeless Tobacco: Never Sex and Gender Information Value Date Recorded Sex Assigned at Not on file Gender Identity Not on file Sexual Orientation Not on file Last Filed Vital Signs Vital Sign Reading Time Taken Comments Blood Pressure 133/96 10/24/2024 4:23 PM EST Pulse 88 10/24/2024 4:23 PM EST Temperature 36.7 ??C (98.1 ??F) 10/24/2024 4:23 PM ES T Respiratory Rate 16 10/24/2024 4:23 PM EST Oxygen Saturation 98% 10/24/2024 4:23 PM EST Inhaled Oxygen Concentration - - Weight - - Height - - Body Mass Index - - Plan of Treatment Health Maintenance Due Date Last Done Comments Hepatitis C Virus Screening 1988 HIV Screening 2001 DTaP/Tdap/Td Vaccines (1 - Tdap) 12/19/2007 Hepatitis B Vaccines (1 of 3 - 19+ 3-dose series) 12/19/2007 Influenza Vaccine 05/18/2024 COVID-19 Vaccine (2023-2 5 season) 2024 HPV Vaccines Aged Out No longer eligi ble based on patient's age to complete this topic Pneumococcal Vaccine: Pediat sue (0-5 Years) and At-Risk Patients (6 to 49 Years) Aged Out No longer eligible b ased on patient's age to complete this topic Care Teams Bomb Squad Officer Relationship Specialty Start Date End Date Pcp, No PCP - General General Medicine 10/15/24
== END 2024-11-30 14:36 | disposition home or self-care (01) ==
PROVIDERS: PCP Nurse Practitioner Family; Visit Provider Urology
DX: Z30.09 Encounter for other general counseling and advice on contraception (principal)
CPT/HCPCS: 99024

== ENCOUNTER 2025-05-02 08:58 | Outpatient (AMB) | payer OTHER, SELFPAY ==
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
[2025-05-02 09:06] VITALS: BP 104/68; PULSE 90; RESP 16; TEMP 36.9; O2SAT 96; BMI 25.9
--- OUTSIDE RECORDS SUMMARY | 2025-05-02 09:14 | XMS_ITS ---
[facility] Problems Problem Status Onset Date Problem Type Date of Resolution Source Acute upper respiratory infection, unspecified active 2023-11-01 [address] [facility] Walking pneumonia [facility] En[facility] Encounter Type Encounter Reason Primary Diagnosis Location Date Ambulatory Cough [facility] 10/24/2024 Ambulatory [facility] 07/26/2023 Care Team Organization Name Specialty Phone Email Start Date End Da te [facility] 11/04/2024 01/03/2025 [facility] 10/25/2024 [facility] Not Found Primary Care 11/07/2023 [facility] 023 04/23/2025 [facility] 023 07/26/2023
--- OUTSIDE RECORDS SUMMARY | 2025-05-02 09:14 | XMS_ITS | Clinical Summary ---
Author Organization [facility] Address [address] [place] [id number] Care Team Providers Care Home Service Advisor Name Role Phone Pcp, No Primary Care Provider Unavailabl e Allergies No known active allergies Medications atorvastatin (LIPITOR) 10 MG tablet 10 MG ORALLY BEDTIME 08/28/2024 Active losartan-hydroC HLOROthiazide (HYZAAR) 50-12.5 MG per tablet Take 1 tablet by mouth. 10/18/2024 Active benzonatate (TESSALON) 200 MG capsuleIndicati ons:Walking pneumonia Take 1 capsule (200 mg total) by mouth 3 (three) times a day as needed for cough. 30 capsule 10/24/2024 Active Social History Tobacco Use Types Packs/Day Years Used Date Smoking Tobacco: Never Smokeless Tobacco: Never Sex and Gender Information Value Date Recorded Sex Assigned at Not on file Legal Sex Male 3:54 PM EST Gender Identity Not on file Sexual Orientation Not on file Last Filed Vital Signs Vital Sign Reading Time Taken Comments Blood Pressure 133/96 10/24/2024 4:23 PM EST Pulse 88 10/24/2024 4:23 PM EST Temperature 36.7 C (98.1 F) 10/24/2024 4:23 PM EST Respiratory Rate 16 10/24/2024 4:23 PM EST [...] of 3 - 19+ 3-dose series) 12/19/2007 COVID-19 Vaccine (2023-2 5 season) 2024 Influenza Vaccine 05/18/2025 HPV Vaccines Aged Out No longer eligi ble based on patient's age to complete this topic Pneumococcal Vaccine: Pediat sue (0-5 Years) and At-Risk Patients (6 to 49 Years) Aged Out No longer eligible b ased on patient's age to complete this topic Insurance [facility] Care Teams Home Service Advisor Relationship Specialty Start Date End Date Pcp, No PCP - General General Medicine 10/15/24
== END 2025-05-02 09:57 | disposition home or self-care (01) ==
LOC: HO.HMCC 09:00
PROVIDERS: PCP Nurse Practitioner Family; Visit Provider Nurse Practitioner Family
DX: Z00.00 Encounter for general adult medical examination without abnormal findings (principal)

== ENCOUNTER 2025-05-02 08:58 | Outpatient (REF) | payer OTHER, SELFPAY ==
[2025-05-02 13:43] LABS: MANUAL DIFF FLAG NO
[2025-05-02 13:58] LABS: Hematocrit 39.5 % (42.0-52.0); Hemoglobin 13.7 g/dl (14.0-18.0); Imm Gran Abs Auto 0.02 X10*3/uL (0.00-0.03); Imm Gran Pct Auto 0.3 % (0.0-0.4); Lymphocytes Absolute Auto 1.4 X10*3/uL (1.2-4.9); Mean Corpuscular HGB Conc 34.7 g/dl (31.0-36.0); Mean Corpuscular Hemoglobin 30.9 pg (27.0-33.0); Mean Corpuscular Volume 89.2 fL (80.0-98.0); NRBC Abs Auto 0.000 X10*3/uL (0.0-0.012); NRBC Pct Auto 0.0 /100WBC (0.0-0.2); Platelet Count 332 X10*3/uL (160-400); Red Blood Count 4.43 X10*6/uL (4.60-5.80); Reticulocytes Absolute 0.070 X10*6/uL (0.026-0.095); White Blood Count 6.1 X10*3/uL (4.8-10.8)
[2025-05-02 14:02] LABS: Appearance Urine Cloudy; Glucose Urine UA Negative (Negative); PH 6.0 (5.0-9.0); Specific Gravity - Urine >= 1.030 (1.005-1.025)
[2025-05-02 14:37] LABS: Alanine Aminotransferase 38 U/L (0-40); Albumin Level 5.1 g/dL (3.5-5.0); Alkaline Phosphatase 58 U/L (39-117); Anion Gap 13 (12-20); Aspartate Amino Transferase 36 U/L (5-37); Blood Urea Nitrogen 14 mg/dL (9-16); Calcium 9.4 mg/dL (8.4-10.2); Carbon Dioxide 29 mmol/L (22-29); Chloride 102 mmol/L (96-108); Cholesterol 146 mg/dL (<200); Estimated Glomerular Filt Rate > 60; HDL Cholesterol 53 mg/dL (>40); Iron 116 mcg/dL (45-160); Percent Iron Saturation 35 % (15-50); Potassium 3.5 mmol/L (3.3-5.1); Sodium 140 mmol/L (135-145); Total Iron Binding Capacity 336 mcg/dL (228-428); Total Protein 8.5 g/dL (6.5-8.0); Triglycerides 364 mg/dL (<150); Unsaturated Iron Binding 220 ug/dL
[2025-05-02 14:39] LABS: Ferritin 141 ng/mL (20-250)
[2025-05-02 15:16] LABS: Folate 3.0 ng/mL (> or = 4.0); Vitamin B12 235 pg/mL (200-900)
[2025-05-04 14:13] LABS: Hematocrit 41.9 % (38.5-50.0); Hemoglobin 13.9 g/dL (13.2-17.1); MCH 31.0 pg (27.0-33.0); MCV 93.5 fL (80.0-100.0); RBC 4.48 Million/uL (4.20-5.80); RDW 11.1 % (11.0-15.0)
== END 2025-05-02 08:59 | disposition home or self-care (01) ==
LOC: HO.HMGCLDS 08:58
PROVIDERS: PCP Nurse Practitioner Family; Visit Provider Nurse Practitioner Family
DX: Z00.00 Encounter for general adult medical examination without abnormal findings (principal); D64.9 Anemia, unspecified; Z13.31 Encounter for screening for depression; Z13.39 Encounter for screening examination for other mental health and behavioral disorders
CPT/HCPCS: 36415; 80053; 80061; 81003; 82607; 82728; 82746; 83020; 83540; 83615; 84443; 85014; 85018; 85025; 85041; 85045; 96127

== ENCOUNTER 2025-06-07 08:41 | Outpatient (REF) | payer OTHER, SELFPAY ==
--- OUTSIDE RECORDS SUMMARY | 2025-06-07 09:41 | XMS_ITS | Clinical Summary ---
Author Organization [facility] Address [address] [place] [address] Care Team Providers Care Hand Engraver Name Role Phone Pcp, No Primary Care [...] of 3 - 19+ 3-dose series) 12/19/2007 HPV Vaccines (1 - 3-dose SCD M series) 12/19/2015 COVID-19 Vaccine (2023-2 5 season) 2024 Influenza Vaccine 05/18/2025 Pneumococcal Vaccine: Pediat sue (0-5 Years) and At-Risk Patients (6 to 49 Years) Aged Out No longer eligible b ased on patient's age to complete this topic Insurance [facility] Care Teams Hand Engraver Relationship Specialty Start Date End Date Pcp, No PCP - General General Medicine 10/15/24
--- OUTSIDE RECORDS SUMMARY | 2025-06-07 09:41 | XMS_ITS | Encounter Summary ---
Author Organization [facility]ly [facility] Address [address] [place] [address] Phone Care Team Providers Care Field Education Director Name Role Phone Damien Pisano RETAIL INTERIOR DESIGNER Primary Care Provider + Encounter Details Date Type Department Care Team (Late st Contact Info) Description 01/25/2018 Telephone [facility] [address] [place] [address] Bing Sims MD [address] [place] [address] [email or web address] Social History Tobacco Use Types Packs/Day Years Used Date Smoking Tobacco: Never Assessed Sex and Gender Information Value Date Recorded Sex Assigned at Not on file Legal Sex Male 3:06 PM EDT Gender Identity Not on file Sexual Orientation Not on file documented as of this encounter Plan of Treatment Not on file documented as of this encounter Visit Diagnoses Not on filedocumented in this encounter Care Teams Field Education Director Relationship Specialty Start Date End Date Damien Pisano NP [address] [place] [address] PCP - General Family Medicine 01/25/18 documented as of this encounter Additional Source Comments The information contained in this document represents components of the legal health record. It is not the complete legal health record.[facility]
[2025-06-08 07:23] LABS: Follicle Stimulating Hormone 2.7 mIU/mL (1.4-12.8)
[2025-06-12 21:23] LABS: Testosterone, Free 92.0 pg/mL (35.0-155.0)
== END 2025-06-07 08:42 | disposition home or self-care (01) ==
LOC: HO.HMGCLDS 08:41
PROVIDERS: PCP Nurse Practitioner Family; Visit Provider Nurse Practitioner Family
DX: R68.82 Decreased libido (principal)
CPT/HCPCS: 36415; 83001; 83002; 84402; 84403

== ENCOUNTER 2025-08-21 12:31 | Outpatient (REF) | payer OTHER, SELFPAY ==
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
--- OUTSIDE RECORDS SUMMARY | 2025-08-22 15:11 | XMS_ITS | Encounter Summary ---
Author Organization [facility] Address [address] [place] [address] Care Team Providers Care Top Lift Scourer Name Role Phone Pcp, No Primary Care Provider Unavailabl e Encounter Details Date Type Department Care Team (Late st Contact Info) Description 10/24/2024 Scanned Document [address] [facility] [place] [address] Provider, Generic Social History Tobacco [...] on filedocumented in this encounter Care Teams Top Lift Scourer Relationship Specialty Start Date End Date Pcp, No PCP - General General Medicine 10/15/24 documented as of this encounter
--- OUTSIDE RECORDS SUMMARY | 2025-08-22 15:11 | XMS_ITS | Clinical Summary ---
Author Organization [facility] Address [address] [place] [address] Care Team Providers Care Core Java Engineer Name Role Phone Pcp, No Primary Care [...] patient's age to complete this topic Insurance [facility] Care Teams Core Java Engineer Relationship Specialty Start Date End Date Pcp, No PCP - General General Medicine 10/15/24
--- OUTSIDE RECORDS SUMMARY | 2025-08-22 15:11 | XMS_ITS | Clinical Summary ---
Author Organization [facility] Address [address] [place], [place] [address] Phone Care Team Providers Care Hospice Patient Care Secretary Name Role Phone Damien Pisano NP Primary [...] 2:12 PM EDT) HCV ANTIBODY Negative Negative [facility] Comment:Antibodies to HCV no t detected. Does not exclude the possibility of exposure to HCV. 02/22/2018 2:12 PM EDT 02/22/2018 7:38 PM EDT us Bing Sims MD LAB BLOOD BKR ORDERABLES Fi nal Result [address] [address] from Last 3 Months or Most Recently Relevant to Health Maintenance Insurance CIGNA PPO CIGNA PPO Member Subscriber Plan / Payer (Ef fective 2016-Present) Name:Darrell Alvarez Relation to Subscriber:Self Name:Darrell Alvarez Payer ID:[id number] ([facility]) Type:PPO Address: [place] [id number] CIGNA PPO CIG PPO CIGNA PPO CIGNA PPO CIGNA PPO CIGNA PPO CIGNA PPO CIGNA PPO Care Teams Hospice Patient Care Secretary Relationship Specialty Start Date End Date Damien Pisano NP [facility] [place] [address] PCP - General Family Medicine 01/25/18 Additional Source Comments The information contained in this document represents components of the legal health record. It is not the complete legal health record.[facility]
--- OUTSIDE RECORDS SUMMARY | 2025-08-22 15:11 | XMS_ITS | Encounter Summary ---
Author Organization [facility] Address [address] [place] [address] Phone Care Team Providers Care Is Manager Name Role Phone Damien Pisano AGRICULTURAL CHEMICALS INSPECTOR Primary Care Provider + Encounter Details Date Type Department Care Team (Late st Contact Info) Description 01/25/2018 Telephone [facility] [address] [place] [address] Bing Sims MD [address] [place], [place] [id number] [address] [email or web address] Social History Tobacco Use Types Packs/Day [...] on filedocumented in this encounter Care Teams Is Manager Relationship Specialty Start Date End Date Damien Pisano NP [address] [address] PCP - General Family Medicine 01/25/18 documented as of this encounter Additional Source Comments The information contained in this document represents components of the legal health record. It is not the complete legal health record.[facility]
== END 2025-08-21 12:32 | disposition home or self-care (01) ==
LOC: HO.HOSX 12:31
PROVIDERS: Visit Provider Physician Assistant
DX: M25.562 Pain in left knee (principal); G89.29 Other chronic pain; Z87.828 Personal history of other (healed) physical injury and trauma
CPT/HCPCS: 73562

== ENCOUNTER 2025-08-21 14:23 | Outpatient (AMB) | payer OTHER, SELFPAY ==
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
--- OUTSIDE RECORDS SUMMARY | 2025-08-21 17:26 | XMS_ITS | Encounter Summary ---
Author Organization [facility] Address [address] [place] [address] Care Team Providers Care Director Pharmacy Services Name Role Phone Pcp, No Primary Care Provider Unavailabl e Encounter Details Date Type Department Care Team (Late st Contact Info) Description 10/24/2024 Scanned Document [address] [place] [address] Provider, Generic Social History Tobacco [...] on filedocumented in this encounter Care Teams Director Pharmacy Services Relationship Specialty Start Date End Date Pcp, No PCP - General General Medicine 10/15/24 documented as of this encounter
--- OUTSIDE RECORDS SUMMARY | 2025-08-21 17:26 | XMS_ITS | Clinical Summary ---
Author Organization [facility] Address [address] [place] [address] Care Team Providers Care Beer Still Runner Compounder Name Role Phone Pcp, No Primary Care [...] - 19+ 3-dose series) 12/19/2007 Influenza Vaccine 05/18/2025 COVID-19 Vaccine (2023-2 5 season) 2025 HPV Vaccines (No Doses Required) Completed Pneumococcal Vaccine: Pediat sue (0-5 Years) and At-Risk Patients (6 to 49 Years) Aged Out No longer eligible b ased on patient's age to complete this topic Insurance [facility] Care Teams Beer Still Runner Compounder Relationship Specialty Start Date End Date Pcp, No PCP - General General Medicine 10/15/24
--- OUTSIDE RECORDS SUMMARY | 2025-08-21 17:26 | XMS_ITS | Encounter Summary ---
Author Organization [facility] Address [address] [place] [address] Phone Care Team Providers Care Charge Nurse Name Role Phone Damien Pisano PROPOSAL EDITOR Primary Care Provider + Encounter Details Date Type Department Care Team (Late st Contact Info) Description 01/25/2018 Telephone [facility] [place] [facility] [address] [place] [address] Bing Sims MD [address] [place], [place] [id number] [address] [email or web address] Social History Tobacco Use Types Packs/Day Years [...] on filedocumented in this encounter Care Teams Charge Nurse Relationship Specialty Start Date End Date Damien Pisano NP [address] [place] [address] PCP - General Family Medicine 01/25/18 documented as of this encounter Additional Source Comments The information contained in this document represents components of the legal health record. It is not the complete legal health record.[facility]
--- OUTSIDE RECORDS SUMMARY | 2025-08-21 17:26 | XMS_ITS | Clinical Summary ---
Author Organization [facility] Address [address] [place], [place] [address] Phone Care Team Providers Care Flavorings Compounder Name Role Phone Damien Pisano NP Primary Care Provider + Allergies No known active allergies Medications No known medications Active Problems Problem Noted Date Diagnosed Date Encounter for examination of potential donor of organ or tissue 02/23/2018 Family History Medical History Relation Comments Asthma Brother 1 No Known Problems Brother 2 No Known Problems Brother 3 No Known Problems Father Cancer Neg Hx Diabetes Neg Hx Heart disease Neg Hx Hypertension Neg Hx Kidney disease Neg Hx Relation Status Comments Brother 1 Alive Brother 2 Alive Brother 3 Alive Father Alive Mother Other patient does not speak to anyone from his family Social History Tobacco Use Types Packs/Day Years Used Date Smoking Tobacco: Never Smokeless Tobacco: Never Alcohol Use Standard Drinks/Week Comments Yes 0 (1 standard drink = 0.6 oz pur e alcohol) 2 beers twice a month Education Answer Date Recorded Are you interested in more education? Not on marce e 02/12/2023 Are you concerned about learning? Not on file 02/12/2023 No 02/12/2023 No 02/12/2023 Digital Access Answer Date Recorded No 03/13/2023 No 03/13/2023 No 03/13/2023 Reliable internet access at home? Not on file 03/13/2023 Device with a working camera? Not on file Sex and Gender Information Value Date Recorded Sex Assigned at Not on file Legal Sex Male 3:06 PM EDT Gender Identity Not on file Sexual Orientation Not on file Last Filed Vital Signs Vital Sign Reading Time Taken Comments Blood Pressure 127/76 02/22/2018 11:32 AM EDT Pulse 73 02/22/2018 11:32 AM EDT Temperature 36.8 C (98.3 F) 02/22/2018 11:32 AM EDT Respiratory Rate - - Oxygen Saturation 97% 02/22/2018 11:32 AM EDT Inhaled Oxygen Concentration - - Weight 79.4 kg (175 lb) 02/22/2018 11:32 AM EDT Height 180.3 cm (5' 11 ) 02/22/2018 11:32 AM EDT Body Mass Index 24.41 02/22/2018 11:32 AM EDT Plan of Treatment Health Maintenance Due Date Last Done Comments Adult Td,Tdap Booster 1988 LIPID PANEL 1988 DEPRESSION SCREENING 2000 INFLUENZA VACCINE (#1) 2025 7, 06/26/2010 COVID-19 VACCINE (3 2024-2 6 season) 2025 01/01/2021, 12/04/2020 HEPATITIS C SCREENING Completed 02/22/2018 HIV ONE-TIME SCREENING (18-6 5 YEARS) Completed 02/22/2018 SMOKING STATUS SCREENING (On ce After 26 Yrs) Completed 02/22/2018 HEPATITIS A VACCINES Aged Out No long er eligible based on patient's age to complete this topic HIB VACCINES Aged Out No longer eligi ble based on patient's age to complete this topic MENINGOCOCCAL VACCINES (ACWY) Aged Out No longer eligible based on patient's age to complete this topic MENINGOCOCCAL VACCINES (B) Aged Out N o longer eligible based on patient's age to complete this topic PNEUMOCOCCAL VACCINES (0-49 years) Aged Out No longer eligible b ased on patient's age to complete this topic Medical Devices Not on file Procedures Procedure Name Priority Date/Time Associated Diagnosis Comments HEPATITIS C ANTIBODY, QUALITATIVE Routine 02/22/2018 2:12 PM EDT Physical examination of potential organ donor from Last 3 Months or Most Recently Relevant to Health Maintenance Results * Hepatitis C antibody, qualitative (02/22/2018 2:12 PM EDT) HCV ANTIBODY Negative Negative [facility] Comment:Antibodies to HCV no t detected. Does not exclude the possibility of exposure to HCV. 02/22/2018 2:12 PM EDT 02/22/2018 7:38 PM EDT us Bing Sims MD LAB BLOOD BKR ORDERABLES Fi nal Result [address] [address] from Last 3 Months or Most Recently Relevant to Health Maintenance Insurance CIGNA PPO CIGNA PPO Member Subscriber Plan / Payer (Ef fective 2016-Present) Name:Darrell Alvarez Relation to Subscriber:Self Name:Darrell Alvarez Payer ID:[id number] ([facility]) Type:PPO Address: [place] [id number] CIGNA PPO CIG PPO CIGNA PPO CIGNA PPO CIGNA PPO CIGNA PPO CIGNA PPO CIGNA PPO Care Teams Flavorings Compounder Relationship Specialty Start Date End Date Damien Pisano NP [facility] [place] [address] PCP - General Family Medicine 01/25/18 Additional Source Comments The information contained in this document represents components of the legal health record. It is not the complete legal health record.[facility]
== END 2025-08-21 15:11 | disposition home or self-care (01) ==
LOC: HO.HOS 14:24
PROVIDERS: PCP Nurse Practitioner Family; Visit Provider Physician Assistant
DX: M25.562 Pain in left knee (principal); G89.29 Other chronic pain; Z87.828 Personal history of other (healed) physical injury and trauma
CPT/HCPCS: 99203

== ENCOUNTER → 2025-08-21 14:25 | Outpatient (BNV) | payer OTHER, SELFPAY | PROVIDERS: Visit Provider Radiology Diagnostic Radiology | DX: M25.561 Pain in right knee (principal) | CPT/HCPCS: 73562 ==

== ENCOUNTER 2025-08-30 14:30 | Outpatient (AMB) | payer OTHER, SELFPAY ==
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
[2025-08-30 14:39] VITALS: BP 121/74; PULSE 92; RESP 16; O2SAT 96; BMI 24.7
--- OUTSIDE RECORDS SUMMARY | 2025-08-30 17:55 | XMS_ITS | Clinical Summary ---
Author Organization [facility] Address [address] [place] [address] Care Team Providers Care Account Services Coordinator Name Role Phone Pcp, No Primary Care [...] patient's age to complete this topic Insurance [facility] Care Teams Account Services Coordinator Relationship Specialty Start Date End Date Pcp, No PCP - General General Medicine 10/15/24
--- OUTSIDE RECORDS SUMMARY | 2025-08-30 17:55 | XMS_ITS | Encounter Summary ---
Author Organization [facility] Address [address] [place] [address] Phone Care Team Providers Care Supervisor [employer] Name Role Phone Damien Pisano [employer] Primary Care Provider + Encounter Details Date Type Department Care Team (Late st Contact Info) Description 01/25/2018 Telephone [facility] [address] [facility] [address] [place] [address] Bing Sims MD [address] [place], [place] [id number] [id number] [email or web address] Social History Tobacco Use Types Packs/Day [...] on filedocumented in this encounter Care Teams Supervisor [employer] Relationship Specialty Start Date End Date Damien Pisano NP [address] [facility] [place] [address] PCP - General Family Medicine 01/25/18 documented as of this encounter Additional Source Comments The information contained in this document represents components of the legal health record. It is not the complete legal health record.[facility]
--- OUTSIDE RECORDS SUMMARY | 2025-08-30 17:55 | XMS_ITS | Encounter Summary ---
Author Organization [facility] Address [address] [place] [address] Care Team Providers Care Director Oncology Name Role Phone Pcp, No Primary Care Provider Unavailabl e Encounter Details Date Type Department Care Team (Late st Contact Info) Description 10/24/2024 Scanned Document [address] [facility] [place] [address] Provider, Generic Social History Tobacco [...] filedocumented in this encounter Care Teams Director Oncology Relationship Specialty Start Date End Date Pcp, No PCP - General General Medicine 10/15/24 documented as of this encounter
--- OUTSIDE RECORDS SUMMARY | 2025-08-30 17:55 | XMS_ITS | Clinical Summary ---
Author Organization [facility] Address [address] [place], [place] [id number] Phone Care Team Providers Care Plug Grower Name Role Phone Damien Pisano NP Primary [...] 01/01/2021, 12/04/2020 HEPATITIS C SCREENING Completed 02/22/2018 , 02/22/2018, 02/22/2018 HIV ONE-TIME SCREENING (18-6 5 YEARS) Completed 02/22/2018 SMOKING STATUS SCREENING (On ce After 26 Yrs) Completed 02/22/2018 HEPATITIS A VACCINES Aged Out No long er eligible based on patient's age to complete this topic HIB VACCINES Aged Out No longer eligi ble based on patient's age to complete this topic IPV VACCINES Aged Out No longer eligi ble [...] 2:12 PM EDT) HCV ANTIBODY Negative Negative [facility] Comment:Antibodies to HCV no t detected. Does not exclude the possibility of exposure to HCV. 02/22/2018 2:12 PM EDT 02/22/2018 7:38 PM EDT us Bing Sims MD LAB BLOOD BKR ORDERABLES Fi nal Result [facility] [address] [place] [address] from Last 3 Months or Most Recently Relevant to Health Maintenance Insurance CIG PPO CIGNA PPO CIGNA PPO CIGNA PPO CIGNA PPO CIGNA PPO CIGNA PPO CIGNA PPO CIGNA PPO CIGOTIS PPO Care Teams Plug Grower Relationship Specialty Start Date End Date Damien Pisano NP [facility] [place] [address] PCP - General Family Medicine 01/25/18 Additional Source Comments The information contained in this document represents components of the legal health record. It is not the complete legal health record.[facility]
== END 2025-08-30 15:13 | disposition home or self-care (01) ==
LOC: HO.PMC 14:32
PROVIDERS: Visit Provider Registered Nurse Emergency
DX: M25.562 Pain in left knee (principal); G89.29 Other chronic pain; Z87.828 Personal history of other (healed) physical injury and trauma
CPT/HCPCS: 99204